=== PATIENT | male | born 1985 | race Caucasian/White ===

== ENCOUNTER 2017-12-08 11:23 | Emergency (ER) | payer OTHER ==
[~2017-12-08] VITALS: Ht 165.1 cm; Wt 91.0 kg
[~2017-12-08 11:23] MED LIST: BUPR8MIS SL
[2017-12-08 11:28] VITALS: TEMP 36.5; Ht 165.1 cm; Wt 91.0 kg
[2017-12-08] MEDS ORDERED: XYLOCAINE 1%/SOD BICARB 20 ML VIAL INFIL ONE (11:45)
[2017-12-08] MEDS ORDERED: CEFAZOLIN SOD 1000MG/7.5 ML IV PUSH IV STA (12:43)
--- NOTE | 2017-12-08 13:03 | DIAGNOSTIC IMAGING REPORT ---
CT OF THE HEAD WITHOUT CONTRAST CLINICAL HISTORY: Laceration from chainsaw to head. COMPARISON STUDY: Head CT April 02, 2015. CT DOSE: 537.48 mGy.cm TECHNIQUE: Helical axial images of the head were obtained without IV contrast. Automated exposure control was utilized for the study. A dose lowering technique was utilized adhering to the principles of ALARA. FINDINGS: No acute intracranial hemorrhage, midline shift or mass effect is present. There is no pneumocephalus. Ventricular system is normal. Basilar cisterns are patent. There are no extra-axial collections. Cardoso-white differentiation is maintained. Note is made of a left frontal scalp laceration. There is an associated left frontal bone calvarial fracture with several associated fracture fragments. The calvarial fracture is not depressed. There is no clear intracranial extension. Visualized portions of the sinuses and mastoid air cells are clear. There are no additional calvarial fracture. IMPRESSION: 1. No acute intracranial findings. 2. Left frontal scalp laceration with associated left frontal bone injury with calvarial fracture with several small fracture fragments. Calvarial fracture not depressed. No clear intracranial extension. No pneumocephalus. Electronically signed by: Guy Shen M.D. 12/08/2017 1:02 PM Dictated Date/Time: 12/08/2017 12:57 PM
[2017-12-08] MEDS ORDERED: CEFAZOLIN SOD 1 GM VIAL IM ONE (13:15)
[2017-12-08] MEDS ORDERED: LIDOCAINE/EPINEPHRINE 1% 20 ML VIAL ONE (14:03)
[2017-12-08] MEDS ORDERED: CEPH500C2 PO (15:29)
[2017-12-08 15:37] VITALS: BP 140/98; PULSE 59; O2SAT 98
--- NOTE | 2017-12-08 21:40 | EMERGENCY ROOM VISIT NOTE ---
ED Visit Note First contact with patient: 11:31 Chief Complaint: I cut my head with my chainsaw. History of Present Illness: Mr. Ramos is a 32-year-old white male who ambulates into the ED accompanied by male friend complaining of a laceration to the scalp from a chainsaw. 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 He reports he was clearing out some sanchez that was adjacent to a tree just above his head. He reports the chainsaw hit a part of the tree kind of bounced back and the chainsaw struck his head causing a laceration. He does report he tried to control bleeding prior to arrival at the hospital. He reports at the time of the injury he did not have a loss of consciousness and since that injury he has not been experiencing any symptoms of head injury. Currently he is complaining of a throbbing and burning pain over the area of his laceration. He rates the discomfort 3/10. The pain is nonradiating. The pain worsens with palpation. He has not identified any alleviating factors related to the pain. He has not taken any medication for pain prior to arrival at the hospital. He denies any associated symptoms including headache, dizziness, lightheadedness, abnormal neurological symptoms, visual changes, neck pain, chest pain, shortness of breath, nausea/vomiting. Review of Systems: As noted above in history of present illness. 8 body systems were reviewed and found to be negative as noted above. Past Medical History: Psoriasis, bronchitis, pneumonia, migraine headaches depression, opiate abuse. Current Medications: Suboxone. Allergies to Medications: Patient denies. Social History: Patient is self employed; he feels safe in his home environment ; he admits to tobacco use and denies alcohol use. Tetanus Immunization Status: Patient reports his last tetanus was 3 years ago. Physical Examination: Vital Signs: Date Time Temp Pulse Resp B/P (MAP) Pulse Ox O2 Delivery O2 Flow Rate FiO2 12/08/17 15:37 59 18 140/98 98 12/08/17 13:18 70 16 126/76 99 12/08/17 11:28 36.5 97 18 159/86 100 Room Air GENERAL: 32-year-old female in mild distress due to pain, nontoxic-appearing, afebrile and hemodynamically stable. NEUROLOGICAL: Awake, alert and oriented to person, place and time. Answering questions appropriately and following commands. Normal gait. Good hand eye coordination. Cranial nerves II through XII grossly intact. SKIN: Warm, dry and pink. Face/Scalp: Y-shaped laceration; total of 9.1 cm full -thickness complex laceration extending from the left parietal area anteriorly into the left frontal area. Bleeding was not controlled. HEENT: Normocephalic. Bony skull is sliced from the chainsaw and there are bony fragments around the wound. I do not appreciate the wound extending through the bony skull. There is no tenderness over the bony skull. There is mild tenderness over the soft tissues of his laceration. No raccoon's eyes or chatman signs. No drainage from the ears of the nostril; no hemotympanum. No bony tenderness, swelling or ecchymosis of the face. PERRLA. EOMI without nystagmus. ED Course: Patient is assessed as noted above. Patient's medication list was reviewed. Patient was offered medication for pain and refused. Head CT: Was reviewed by myself and read by the radiologist showing no acute intracranial findings. Left frontal scalp laceration with an associated left frontal bone injury with fracture with several small fractured fragments. Fracture is not depressed and there is no clear extension intracranially. No pneumocephalus. Wound Repair: Complexity: Advanced. Reason: Multilayer closure including the galea, debridement of bone tissue. Verbal consent was obtained after the risks and benefits were explained. The skin was prepped with betadine and a sterile field set. Initially patient's wound ends were anesthetized with approximately 8 mL of 1% buffered lidocaine. When the bone injury was found I did send the patient for CT of his head. When he retuned from CT he was able to distinguish light sensations. It was also noted that he had a few small arterial bleeds so his wound was reanesthetized with approximately 8 mL of buffered 1% lidocaine with epinephrine. The wounds were explored for foreign bodies and none found. Copious irrigation was performed using sterile saline. With direct pressure the bleeding subsided. Debridement was performed to remove 6 bony fragments. Initially the galea was identified and closed with 3 simple interrupted sutures of 6-0 Vicryl. The subcuticular was closed with 4 simple interrupted sutures of 6-0 Vicryl for better approximation. The skin layer of the laceration was closed with a combination of 4-0 and 5-0 Ethilon with a total of 17 simple interrupted sutures. Hemostasis and excellent approximation was achieved. Antibacterial ointment, a sterile dressing applied. The area was then wrapped with an Zain bandage to provide pressure for bleeding control. No complications and the patient tolerated the procedure well. Patient did report to me that he has a history of IV drug abuse. I did order 1 g of Ancef IV for antibiotic coverage; I was informed by the nurse that they were not able to get a peripheral IV because of his tracks jain; nurses reported that some of the track jain appeared fresh. So the medication was given IM. When I do free moment to talk to the patient without his I did question him about the fresh track jain and he reported he has not been using IV narcotics for a while and they were not fresh track jain. I did offer personal injury legal assistant and he reports none was needed. Patient's case was reviewed with Dr. Ryder; we agreed on diagnostic approach, treatment, disposition and plan. Patient was educated about tonight's findings and instructed on his treatment plan; he verbalizes understanding and agreement with this plan. Clinical Impression: Complex laceration to the left parietal and frontal skull. Incomplete skull fracture. Disposition: Patient discharged home in stable condition; prior to departure he was reassessed and subjectively reported he was pain-free. Plan: Comfort measures, wound care, and signs of infection were discussed with the patient. Patient was educated on signs of head injury. Patient was prescribed Keflex 500 mg 4 times a day for 10 days. Patient was given the contact information for Dr. Velásquez, plastic surgery, as needed for follow-up. Patient was encouraged to follow-up with personal physician or return emergency department for signs of infection and/or suture removal in 10-12 days. Patient was encouraged return the ED for any signs of head injury or any new/ concerning symptoms.
== END 2017-12-08 15:37 | disposition home or self-care (01) ==
LOC: C.EDB 11:24 → C.EDC 15:37
DX: S01.01XA Laceration without foreign body of scalp, initial encounter (principal); S02.0XXA Fracture of vault of skull, initial encounter for closed fracture; W29.3XXA Contact with powered garden and outdoor hand tools and machinery, initial encounter; Y99.0 Civilian activity done for income or pay; L40.9 Psoriasis, unspecified; G43.909 Migraine, unspecified, not intractable, without status migrainosus; F32.9 Major depressive disorder, single episode, unspecified; F11.10 Opioid abuse, uncomplicated; F17.200 Nicotine dependence, unspecified, uncomplicated